=== PATIENT | female | born 1980 | race Caucasian/White ===

== ENCOUNTER → 2024-10-11 | Outpatient (CLI) | payer BC ==
--- NOTE | 2024-10-11 09:26 | MM ---
Reason for Exam: Screening (asymptomatic). Last mammogram was performed 2 year(s) and 4 month(s) ago. Patient History: Menarche at age 12. First Full-Term at age 31. Late child-bearing (after 29). Last menstrual period: 09/29/2024 Risk Values: Lori 5 year model risk: 1.1%. NCI Lifetime model risk: 13.0%. Prior Study Comparison: 06/29/2022 Bilateral MG 3D screening mammo w/cad, [facility] . Tissue Density: There are scattered areas of fibroglandular density. Findings: Analyzed By CAD. Right breast: There is no suspicious group of microcalcifications or new suspicious mass. Left breast: There is no suspicious group of microcalcifications or new suspicious mass. Overall Assessment: Negative, BI-RAD 1 Management: Screening Mammogram of both breasts in [address] [facility] will attempt to contact patient to return for supplemental views and ultrasound if indicated. Patient should continue monthly self-breast exams. A clinical breast exam by your physician is recommended on an annual basis. This exam should not preclude additional follow-up of suspicious palpable abnormalities. Note on Lori scores and lifetime risk: 1. A Lori score greater than 3% is considered moderate risk. If this is the case, consider specialist referral to assess eligibility for a risk reducing agent. 2. If overall lifetime risk for the development of breast cancer is 20% or higher, the patient may qualify for future screening with alternating mammogram and breast MRI. [facility], , 10/11/2024 9:23 AM. Electronically signed and approved by: Manpreet Chandler DO
== END | disposition home or self-care (01) ==
LOC: RADMAMWWP 08:40
PROVIDERS: ATTEND Family Medicine
DX: Z12.31 Encounter for screening mammogram for malignant neoplasm of breast (principal); R92.323 Mammographic fibroglandular density, bilateral breasts
CPT/HCPCS: 77063; 77067